=== PATIENT | female | born 1995 | race Caucasian/White ===

== ENCOUNTER 2020-09-24 11:39 | Emergency (ER) | payer MEDICAID ==
[~2020-09-24] VITALS: Ht 165.1 cm; Wt 85.0 kg
[2020-09-24 11:51] VITALS: BP 135/80
== END 2020-09-24 12:34 | disposition left against medical advice (07) ==
LOC: ER 11:39
DX: R45.6 Violent behavior (principal); Z53.21 Procedure and treatment not carried out due to patient leaving prior to being seen by health care provider

== ENCOUNTER 2022-09-25 13:50 | Emergency (ER) | payer MEDICAID ==
[~2022-09-25] VITALS: Ht 172.7 cm; Wt 83.0 kg
[2022-09-25 13:59] VITALS: BP 149/74; PULSE 68; RESP 20; TEMP 97.9; O2SAT 100
== END 2022-09-25 15:30 | disposition left against medical advice (07) ==
LOC: ER 14:24
DX: Z53.21 Procedure and treatment not carried out due to patient leaving prior to being seen by health care provider (principal)
CPT/HCPCS: 99281

== ENCOUNTER 2022-10-29 22:21 | Emergency (ER) | payer MEDICAID, OTHER ==
[~2022-10-29] VITALS: Ht 167.6 cm; Wt 87.0 kg
[2022-10-29 22:34] VITALS: BP 131/94; PULSE 107; RESP 18; TEMP 98.7; O2SAT 99
[2022-10-30 00:09] LABS: BASOPHILS % 0.7 % (0.0-2.0); EOSINOPHILS % 0.4 % (0.0-5.0); HEMATOCRIT. 42.7 % (36.0-48.0); HEMOGLOBIN. 15.1 g/dL (12.0-16.0); LYMPHOCYTES % 21.9 % (20.0-50.0); MEAN CORPUSCULAR HEMOGLOBIN 29.6 pg (28.0-32.0); MEAN CORPUSCULAR HGB CONC 35.4 g/dL (31.0-37.0); MEAN CORPUSCULAR VOLUME 83.5 fL (81.0-99.0); MEAN PLATELET VOLUME 9.7 fl (7.4-10.4); MONOCYTES % 5.6 % (2.0-8.0); NEUTROPHILS % 71.4 % (40.0-76.0); PLATELET 307 x1000/uL (130-400); RED BLOOD CELL COUNT 5.11 mill/uL (4.2-5.4); RED CELL DISTRIBUTION WIDTH 14.5 % (11.6-14.6)
[2022-10-30 00:34] LABS: HCG SCREEN NEGATIVE
[2022-10-30 01:20] LABS: CHLORIDE 106 mEq/L (98-107); INDEX HEMOLYSI 1 (1-3); INDEX ICTERIC 1 (1-4); INDEX LIPEMIC 1 (1-3); SODIUM 138 mEq/L (136-145)
[2022-10-30 01:33] LABS: ALANINE AMINOTRANSFERASE 96 IU/L (13-61); ALBUMIN 4.4 g/dL (3.4-5.0); ASPARTATE AMINOTRANSFERASE 70 IU/L (15-37); BILIRUBIN TOTAL 0.7 mg/dL (0.1-1.0); CARBON DIOXIDE 24 mEq/L (21-32); GLUCOSE 126 mg/dL (70-105); PROTEIN TOTAL 8.5 g/dL (6.0-8.3); UREA NITROGEN BLOOD 5 mg/dL (7-21)
[2022-10-30 01:38] LABS: TROPONIN I HIGH SENSITIVITY < 4 ng/L (<54)
== END 2022-10-30 05:24 | disposition home or self-care (01) ==
LOC: ER 22:21
DX: R51.9 Headache, unspecified (principal); G93.0 Cerebral cysts
CPT/HCPCS: 36415; 80053; 82962; 84484; 84703; 85025; 85379; 93005; 99285